=== PATIENT | male | born 1970 | race Hispanic/Latino ===

== ENCOUNTER 2020-04-25 19:31 | Emergency (ER) | payer BC ==
--- OUTSIDE RECORDS SUMMARY | 2020-04-25 19:33 | XMS REPORT | Continuity of Care Document ---
:1970 Author Organization [facility] t Address [address] [place] [address] Care Team Providers Name Role Phone Jael DE SANTIAGO, Howard Attending Clinician Problems This patient has no known problems. Allergies, Adverse Reactions, Alerts This patient has no known allergies or adverse reactions. Medications This patient has no known medications. Procedures This patient has no known procedures. Encounters Start End Encounter Admission Attending Care Care Encounter Source Date/Time Date/Time Type Type Clinicians Facility Department ID 2019-10-29 2019-10-29 [facility] [id number] 00:00:00 00:00:00 [facility] [id number] [facility] [id number] Professio [phone] nal 044 Office Building One 2019-10-28 2019-10-28 Office [facility] [id number] 08:24:46 09:08:51 Visit [facility] [id number] [facility] [id number] Professio [phone] nal 044 Office Building One Results This patient has no known results.
[2020-04-25] MEDS ORDERED: LIDOCAINE 1% MPF 5 ML VIAL ONE (20:27)
[2020-04-25] MEDS ORDERED: TETANUS & DIPHTHERIA TOX,ADULT 0.5 ML VIAL ONE (20:28)
--- NOTE | 2020-04-25 21:05 | EDPHYS ---
Physician Documentation [facility] Name: Nilay Frost Age: 49 yrs Sex: Male : 1970 Arrival Date: 04/25/2020 Time: 19:32 Bed 15 Private MD: ED Physician Juan Arguello HPI: 04/25 20:17 This 49 yrs old Male presents to ER via Ambulatory with complaints of jmm Laceration - to Thumb. 20:17 The patient or guardian reports injury, a laceration. Onset: The symptoms/episode jmm began/occurred acutely, just prior to arrival. Modifying factors: The symptoms are alleviated by nothing, the symptoms are aggravated by nothing. Associated signs and symptoms: Pertinent negatives: fever, numbness distally, tingling distally. This is a 49 year old male with a history of htn that presents to the ED with complaints of laceration to his left thumb. Patient using a drill press which rotated an object and cut his thumb. Unsure on tetanus immunization. . Historical: - Allergies: 19:38 No Known Allergies; jd3 - Home Meds: 19:38 visoprolol [Active]; hydrochlorothiazide 37.5 mg Oral tab 1 tab once daily [Active]; jd3 gout med [Active]; - PMHx: 19:38 Diverticulitis; Hypertension; Gout; jd3 - PSHx: 19:38 None; jd3 - Immunization history:: Adult Immunizations up to date, Last tetanus immunization: unknown. - Social history:: Smoking status: Patient denies any tobacco usage or history of. ROS: 20:17 Constitutional: Negative for fever, chills, and weight loss, Cardiovascular: Negative jmm for chest pain, palpitations, and edema, Respiratory: Negative for shortness of breath, cough, wheezing, and pleuritic chest pain. 20:17 Skin: Positive for laceration(s). 20:17 All other systems are negative. Exam: 20:17 Constitutional: This is a well developed, well nourished patient who is awake, alert, jmm and in no acute distress. Head/Face: atraumatic. Eyes: EOMI, no conjunctival erythema appreciated ENT: Moist Mucus Membranes Neck: Trachea midline, Supple Chest/axilla: Normal chest wall appearance and motion. Cardiovascular: Regular rate and rhythm. No edema appreciated Respiratory: Normal respirations, no respiratory distress appreciated Abdomen/GI: Non distended, soft Back: Normal ROM 20:17 Musculoskeletal/extremity: FROM appreciated ot the left thumb, from against resistance, < 2 sec dist cap refill, NVI. 20:17 Skin: 3 cm laceration noted to the left thumb. 20:17 Neuro: Orientation: is normal, Mentation: is normal, Memory: is normal. 20:17 Psych: Behavior/mood is pleasant, cooperative. Vital Signs: 19:38 BP 124 / 81; Pulse 65; Resp 17 S; Temp 97.4(TE); Pulse Ox 98% on R/A; Weight 108.86 kg jd3 (R); Height 6 ft. 1 in. (185.42 cm) (R); Pain 1/10; 20:28 Pulse Ox 100% ; Pain 0/10; ks7 21:16 Pulse Ox 100% ; Pain 0/10; ks7 21:21 Pulse Ox 100% ; Pain 0/10; ks7 21:30 BP 126 / 79; Pulse 70; Resp 18; Temp 98.1(TE); Pulse Ox 99% on R/A; Pain 0/10; ks7 19:38 Body Mass Index 31.66 (108.86 kg, 185.42 cm) jd3 Laceration: 21:03 Wound Repair of 3cm ( 1.2in ) subcutaneous laceration to dorsal aspect of proximal jmm phalanx of left thumb. Distal neuro/vascular/tendon intact. Anesthesia: Local anesthetic administered with 5 mls of 1% lidocaine. Wound prep: Moderate cleansing with betadine by ak. Skin closed with 4 5-0 Prolene using simple sutures and sterile technique. Patient tolerated well. MDM: 20:02 Patient medically screened. [facility] 21:02 Data reviewed: vital signs, nurses notes, lab test result(s), radiologic studies, plain [facility] films. Counseling: I had a detailed discussion with the patient and/or guardian regarding: the historical points, exam findings, and any diagnostic results supporting the discharge/admit diagnosis, the need for outpatient follow up, to return to the emergency department if symptoms worsen or persist or if there are any questions or concerns that arise at home. ED course: Patient given wound infection return precautions. Patient understood and agrees with the plan of care. . 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 Exp: ks7 11/19/2021. Lot #: [id number]. } Route: IM; Site: left deltoid; 20:28 Follow up: Pulse Ox 100% ; Pain 0/10 Adult ks7 21:16 Follow up: Pulse Ox 100% ; Pain 0/10 Adult ks7 20:50 Drug: Lidocaine (1 %) 5 mg {Note: administered by Mohan MINOR prior to lac repair.} Route: ks7 Infiltration; 21:21 Follow up: Pulse Ox 100% ; Pain 0/10 Adult ks7 Disposition: 23:02 Co-signature as Attending Physician, Juan Arguello MD. van Disposition: 04/25/20 21:04 Discharged to Home. Impression: Laceration of the Thumb. - Condition is Stable. - Discharge Instructions: Laceration Care, Adult. - Medication Reconciliation Form, Thank You Letter, Antibiotic Education, Prescription Opioid Use form. - Follow up: Private Physician; When: 2 - 3 days; Reason: Recheck today's complaints, Continuance of care, Re-evaluation by your physician. Signatures: Dispatcher [employer] EDSC Juan Arguello MD MD pkl Mickail, Joel, PA PA jmm Davies, Jonathon RN RN jJodi Hurley RN RN ks7 Corrections: (The following items were deleted from the chart) 20:14 20:05 Hand Left 3 View+RAD.RAD.BRZ ordered. [facility] 21:32 21:04 04/25/2020 21:04 Discharged to Home. Impression: Laceration of the Thumb. ks7 Condition is Stable. Forms are Medication Reconciliation Form, Thank You Letter, Antibiotic Education, Prescription Opioid Use. Follow up: Private Physician; When: 2 - 3 days; Reason: Recheck today's complaints, Continuance of care, Re-evaluation by your physician. [facility]
--- NOTE | 2020-04-25 21:05 | ER ---
Nurse's Notes [facility] Name: Nilay Frost Age: 49 yrs Sex: Male : 1970 Arrival Date: 04/25/2020 Time: 19:32 Bed 15 Private MD: Diagnosis: Laceration of the Thumb Presentation: 04/25 19:35 Chief complaint: Patient states: "I was doing some work with a cable, and when I went j to drill next to it it spun around and caught me in the left thumb.". Coronavirus screen: Proceed with normal triage. Ebola Screen: Patient negative for fever greater than or equal to 101.5 degrees Fahrenheit, and additional compatible Ebola Virus Disease symptoms. Complicating Factors: There are no complicating factors for this patient. Initial Sepsis Screen: Does the patient meet any 2 criteria? No. Patient's initial sepsis screen is negative. Does the patient have a suspected source of infection? No. Patient's initial sepsis screen is negative. Risk Assessment: Do you want to hurt yourself or someone else? Patient reports no desire to harm self or others. Onset of symptoms was April 25, 2020. 19:35 Method Of Arrival: Ambulatory j 19:35 Acuity: JOEY 3 jd3 Triage Assessment: 21:32 General: Appears in no apparent distress. Behavior is calm, cooperative. Injury ks7 Description: Laceration. Historical: - Allergies: 19:38 No Known Allergies; jd3 - Home Meds: 19:38 visoprolol [Active]; hydrochlorothiazide 37.5 mg Oral tab 1 tab once daily [Active]; jd3 gout med [Active]; - PMHx: 19:38 Diverticulitis; Hypertension; Gout; jd3 - PSHx: 19:38 None; jd3 - Immunization history:: Adult Immunizations up to date, Last tetanus immunization: unknown. - Social history:: Smoking status: Patient denies any tobacco usage or history of. Screenin:19 Abuse screen: Denies threats or abuse. Denies injuries from another. Nutritional ks7 screening: No deficits noted. Tuberculosis screening: No symptoms or risk factors identified. Fall Risk None identified. Assessment: 21:17 Pain: Denies pain. Musculoskeletal: laceration to L thumb. normal ROM to thumb/hand. ks7 denies pain. Injury Description: Laceration is clean, 2.6 to 7.5 cm long, not bleeding, linear. 21:19 Reassessment: Patient is alert, oriented x 3, equal unlabored respirations, skin ks7 warm/dry/pink. Vital Signs: 19:38 BP 124 / 81; Pulse 65; Resp 17 S; Temp 97.4(TE); Pulse Ox 98% on R/A; Weight 108.86 kg jd3 (R); Height 6 ft. 1 in. (185.42 cm) (R); Pain 1/10; 20:28 Pulse Ox 100% ; Pain 0/10; ks7 21:16 Pulse Ox 100% ; Pain 0/10; ks7 21:21 Pulse Ox 100% ; Pain 0/10; ks7 21:30 BP 126 / 79; Pulse 70; Resp 18; Temp 98.1(TE); Pulse Ox 99% on R/A; Pain 0/10; ks7 19:38 Body Mass Index 31.66 (108.86 kg, 185.42 cm) [facility] ED Course: 19:32 Patient arrived in ED. ds1 19:37 Triage completed. jd3 19:40 Arm band placed on. j 19:42 Jodi Cadet, ENID is Primary Nurse. ks7 19:42 Mohan Rincon PA is PHCP. [facility] 19:42 Juan Arguello MD is Attending Physician. [facility] 21:19 Resting quietly. ks7 21:19 Patient has correct armband on for positive identification. Bed in low position. Call ks7 light in reach. Side rails up X2. 21:19 No provider procedures requiring assistance completed. Patient did not have IV access ks7 during this emergency room visit. 21:30 Bandage applied. 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 Exp: ks7 11/19/2021. Lot #: [id number]. } Route: IM; Site: left deltoid; 20:28 Follow up: Pulse Ox 100% ; Pain 0/10 Adult ks7 21:16 Follow up: Pulse Ox 100% ; Pain 0/10 Adult ks7 20:50 Drug: Lidocaine (1 %) 5 mg {Note: administered by Mohan MINOR prior to lac repair.} Route: ks7 Infiltration; 21:21 Follow up: Pulse Ox 100% ; Pain 0/10 Adult ks7 Outcome: 21:04 Discharge ordered by . delphine 21:31 Discharged to home ambulatory. ks7 21:31 Condition: good 21:31 Discharge instructions given to patient, Instructed on discharge instructions, wound care, Demonstrated understanding of instructions, follow-up care, wound care. 21:32 Patient left the ED. ks7 Signatures: Mohan Rincno PA PA jmm Sanford, Demi ds1 Efren Cai RN RN jJodi Hurley RN RN ks7 Corrections: (The following items were deleted from the chart) 19:41 19:35 Acuity: JOEY 4 jd3 jd3 19:41 19:38 Pulse 65bpm; Resp 17bpm; Spontaneous; Pulse Ox 98% RA; Temp 97.4F Temporal; jd3 108.86 kg Reported; Height 6 ft. 1 in. Reported; BMI: 31.6; Pain 1/10; jd3
[2020-04-26 12:19] VITALS: BP 126/79; TEMP 98.1; O2SAT 99
== END 2020-04-25 21:32 | disposition home or self-care (01) ==
LOC: ER 19:31
PROC: 0JQK0ZZ Repair Left Hand Subcutaneous Tissue and Fascia, Open Approach (ICD-10-PCS; principal; 2020-04-25)
DX: S61.012A Laceration without foreign body of left thumb without damage to nail, initial encounter (principal); W31.89XA Contact with other specified machinery, initial encounter; Y93.9 Activity, unspecified; Y92.9 Unspecified place or not applicable; I10 Essential (primary) hypertension; Z23 Encounter for immunization
CPT/HCPCS: 90471; 90714; 99283

== ENCOUNTER 2020-04-26 10:25 | Emergency (ER) | payer BC ==
[2020-04-26] MEDS ORDERED: DERMABOND SKIN ADHESIVE TOP ONE (11:28)
--- NOTE | 2020-04-26 11:41 | ER ---
Nurse's Notes [facility] Name: Nilay Frost Age: 49 yrs Sex: Male : 1970 Arrival Date: 04/26/2020 Time: 10:32 Bed 12 Private MD: Diagnosis: Laceration without foreign body of left thumb without damage to nail Presentation: 04/26 11:14 Chief complaint: Patient states: "I woke up today and 2 of my sutures came out and aa5 another one just came out just sitting in the lobby". 1 suture noted to left thumb. 11:14 Coronavirus screen: Patient denies a cough. Patient denies shortness of breath or aa5 difficulty breathing. Patient denies measured and/or subjective temperature greater than 100.4F prior to today's visit. Patient denies travel on a cruise ship or to a country the [facility] currently lists as an affected area. Patient denies contact with known and/or suspected case of COVID-19. Proceed with normal triage. Ebola Screen: Patient negative for fever greater than or equal to 101.5 degrees Fahrenheit, and additional compatible Ebola Virus Disease symptoms. Initial Sepsis Screen: Does the patient meet any 2 criteria? No. Patient's initial sepsis screen is negative. Does the patient have a suspected source of infection? No. Patient's initial sepsis screen is negative. Risk Assessment: Do you want to hurt yourself or someone else? Patient reports no desire to harm self or others. 11:14 Method Of Arrival: Ambulatory aa5 11:14 Acuity: JOEY 4 aa5 11:14 Onset of symptoms was April 26, 2020. aa5 Historical: - Allergies: 11:14 No Known Allergies; aa5 - PMHx: 11:14 Diverticulitis; Gout; Hypertension; aa5 - Immunization history:: Adult Immunizations unknown. - Social history:: Smoking status: Patient denies any tobacco usage or history of. Screenin:20 Abuse screen: Denies threats or abuse. Nutritional screening: No deficits noted. aa5 Tuberculosis screening: No symptoms or risk factors identified. Fall Risk None identified. Assessment: 11:15 General: Appears comfortable, Behavior is calm, cooperative. Pain: Denies pain. Neuro: aa5 Level of Consciousness is awake, alert, obeys commands, Oriented to person, place, time, situation. Cardiovascular: Capillary refill < 3 seconds is brisk in bilateral fingers. Respiratory: Airway is patent Respiratory effort is even, unlabored, Respiratory pattern is regular, symmetrical. GI: No signs and/or symptoms were reported involving the gastrointestinal system. : No signs and/or symptoms were reported regarding the genitourinary system. EENT: No signs and/or symptoms were reported regarding the EENT system. Derm: Skin is pink, warm \\T\\ dry. Laceration noted to left thumb with [address], no active bleeding noted. Musculoskeletal: Range of motion: intact in all extremities. 11:30 Reassessment: Dermabond and steri-strips applied to left thumb by PAPERHANGER SUPERVISOR. . aa5 12:07 Reassessment: Pre-formed finger splint applied to left thumb. aa5 12:08 Reassessment: Patient is alert, oriented x 3, equal unlabored respirations, skin aa5 warm/dry/pink. Vital Signs: 11:16 BP 119 / 85; Pulse 54; Resp 16 S; Temp 98.0(TE); Pulse Ox 96% on R/A; Weight 108.86 kg aa5 (R); Height 6 ft. 1 in. (185.42 cm) (R); 11:16 Body Mass Index 31.66 (108.86 kg, 185.42 cm) aa5 ED Course: 10:32 Patient arrived in ED. fj1 10:51 Denise Guthrie FNP-C is [facility]. kb 10:51 Elgin Mendoza MD is Attending Physician. kb 11:16 Cassia Kim, RN is Primary Nurse. aa5 11:16 Arm band placed on Patient placed in an exam room, on a stretcher. aa5 11:16 Patient has correct armband on for positive identification. aa5 12:08 No provider procedures requiring assistance completed. Patient did not have IV access aa5 during this emergency room visit. 18:03 Triage completed. aa5 Administered Medications: No medications were administered Outcome: 11:40 Discharge ordered by . kb 12:08 Discharged to home ambulatory. aa5 12:08 Condition: stable 12:08 Discharge instructions given to patient, Instructed on discharge instructions, follow up and referral plans. Demonstrated understanding of instructions, follow-up care. 12:12 Patient left the ED. aa5 Signatures: Denise Guthrie FNP-C FNP-Cassia Watts, RN RN aa5 Hiren Childers fj1 Corrections: (The following items were deleted from the chart) 18:03 11:14 Chief complaint: Patient states: "I woke up today and 2 of my sutures came out aa5 and another one just came out just sitting in the lobby". 1 suture noted to thumb. aa5
--- NOTE | 2020-04-26 11:41 | EDPHYS ---
Physician Documentation [facility] Name: Nilay Frost Age: 49 yrs Sex: Male : 1970 Arrival Date: 04/26/2020 Time: 10:32 Bed 12 Private MD: ED Physician Elgin Mendoza HPI: 04/26 11:26 This 49 yrs old Male presents to ER via Unassigned with complaints of Suture kb Recheck. 11:26 Patient presents to ED for recheck of: laceration. The affected area is on the dorsal kb aspect of proximal phalanx of left thumb. Previous treatment: The patient was initially treated yesterday, the care was rendered at [facility], Treatment type: The patient's original treatment included sutures. Progress: The patient reports dehiscence. The patient has not experienced similar symptoms in the past. The patient has been recently seen at the [facility] Emergency Department, yesterday, for similar complaints. Pt reports he had sutures placed yesterday. States he woke up and 2 of them had come out, a third one came out while he was sitting in the lobby. has one suture in place at this time. Historical: - Allergies: 11:14 No Known Allergies; aa5 - PMHx: 11:14 Diverticulitis; Gout; Hypertension; aa5 - Immunization history:: Adult Immunizations unknown. - Social history:: Smoking status: Patient denies any tobacco usage or history of. ROS: 11:17 Constitutional: Negative for fever, chills, and weight loss, Cardiovascular: Negative kb for chest pain, palpitations, and edema, Respiratory: Negative for shortness of breath, cough, wheezing, and pleuritic chest pain, Abdomen/GI: Negative for abdominal pain, nausea, vomiting, diarrhea, and constipation, Back: Negative for injury and pain, MS/Extremity: Negative for injury and deformity, Neuro: Negative for headache, weakness, numbness, tingling, and seizure. 11:17 Skin: Positive for laceration(s), of the dorsal aspect of proximal phalanx of left thumb. Exam: 11:17 Constitutional: This is a well developed, well nourished patient who is awake, alert, kb and in no acute distress. Head/Face: Normocephalic, atraumatic. Chest/axilla: Normal chest wall appearance and motion. Nontender with no deformity. No lesions are appreciated. Cardiovascular: Regular rate and rhythm with a normal S1 and S2. No gallops, murmurs, or rubs. Normal PMI, no JVD. No pulse deficits. Respiratory: Lungs have equal breath sounds bilaterally, clear to auscultation and percussion. No rales, rhonchi or wheezes noted. No increased work of breathing, no retractions or nasal flaring. Abdomen/GI: Soft, non-tender, with normal bowel sounds. No distension or tympany. No guarding or rebound. No evidence of tenderness throughout. MS/ Extremity: Pulses equal, no cyanosis. Neurovascular intact. Full, normal range of motion. Neuro: Awake and alert, GCS 15, oriented to person, place, time, and situation. Cranial nerves II-XII grossly intact. Motor strength 5/5 in all extremities. Sensory grossly intact. Cerebellar exam normal. Normal gait. 11:17 Skin: Wound recheck: Suture laceration closure: marked dehiscence. Vital Signs: 11:16 BP 119 / 85; Pulse 54; Resp 16 S; Temp 98.0(TE); Pulse Ox 96% on R/A; Weight 108.86 kg aa5 (R); Height 6 ft. 1 in. (185.42 cm) (R); 11:16 Body Mass Index 31.66 (108.86 kg, 185.42 cm) aa5 Laceration: 11:34 Wound Repair of 2.5cm ( 1.0in ) subcutaneous laceration to dorsal aspect of proximal kb phalanx of left thumb. Linear shaped.. Distal neuro/vascular/tendon intact. Skin closed with thin layer Adhesive skin closure using Dermabond. Dressed with steri-strips. Patient tolerated well. MDM: 11:16 Patient medically screened. kb 11:17 Data reviewed: vital signs, nurses notes. Data interpreted: Pulse oximetry: on room air kb is 96 %. Interpretation: normal. 11:17 Counseling: I had a detailed discussion with the patient and/or guardian regarding: the kb historical points, exam findings, and any diagnostic results supporting the discharge/admit diagnosis, the need for outpatient follow up, a family practitioner, to return to the emergency department if symptoms worsen or persist or if there are any questions or concerns that arise at home. 07/22 11:17 Order name: Dermabond; Complete Time: 11:19 kb 04/26 11:35 Order name: Finger Splint; Complete Time: 11:50 kb Administered Medications: No medications were administered Disposition: 17:35 Co-signature as Attending Physician, Elgin Mendoza MD. rn Disposition: 04/26/20 11:40 Discharged to Home. Impression: Laceration without foreign body of left thumb without damage to nail. - Condition is Stable. - Discharge Instructions: Laceration Care, Adult, [id number]. - Medication Reconciliation Form, Thank You Letter, Antibiotic Education, Prescription Opioid Use form. - Follow up: Emergency Department; When: As needed; Reason: Worsening of condition. Follow up: Private Physician; When: 2 - 3 days; Reason: Recheck today's complaints, Continuance of care, Re-evaluation by your physician. Signatures: Denise Guthrie, LAND MANAGER-C LAND MANAGER-Ckb Elgin Mendoza MD MD rn Calderon, Audri, RN RN aa5 Corrections: (The following items were deleted from the chart) 12:12 11:40 04/26/2020 11:40 Discharged to Home. Impression: Laceration without foreign body aa5 of left thumb without damage to nail. Condition is Stable. Forms are Medication Reconciliation Form, Thank You Letter, Antibiotic Education, Prescription Opioid Use. Follow up: Emergency Department; When: As needed; Reason: Worsening of condition. Follow up: Private Physician; When: 2 - 3 days; Reason: Recheck today's complaints, Continuance of care, Re-evaluation by your physician. kb
--- OUTSIDE RECORDS SUMMARY | 2020-04-26 11:49 | XMS REPORT | Continuity of Care Document ---
:1970 Author Organization [facility] t Address [address] [place] [address] Care Team Providers Name Role Phone Howard Elder MD Attending Clinician Problems This patient has no known problems. Allergies, Adverse Reactions, Alerts This patient has no known allergies or adverse reactions. Medications This patient has no known medications. Procedures This patient has no known procedures. Encounters Start End Encounter Admission Attending Care Care Encounter Source Date/Time Date/Time Type Type Clinicians Facility Department ID 2019-10-29 2019-10-29 Telephone Jael [facility] [id number] 00:00:00 00:00:00 [facility] [id number] [facility] [id number] Professio [phone] nal 044 Office Building One 2019-10-28 2019-10-28 Office [facility] [id number] 08:24:46 09:08:51 Visit [facility] [id number] [facility] [id number] Professio [phone] nal 044 Office Building One Results This patient has no known results.
[2020-04-26 20:29] VITALS: BP 119/85; TEMP 98; O2SAT 96
== END 2020-04-26 12:12 | disposition home or self-care (01) ==
LOC: ER 10:25
PROC: 0JQK0ZZ Repair Left Hand Subcutaneous Tissue and Fascia, Open Approach (ICD-10-PCS; principal; 2020-04-26)
DX: T81.30XA Disruption of wound, unspecified, initial encounter (principal)
CPT/HCPCS: 99281

== ENCOUNTER 2020-10-21 17:08 | Emergency (ER) | payer SELFPAY ==
--- OUTSIDE RECORDS SUMMARY | 2020-10-21 17:10 | XMS REPORT | Continuity of Care Document ---
:1970 Author Organization [facility] t Address [address] [place] [address] Care Team Providers Name Role Phone Howard Elder MD Attending Clinician 2, Lab Attending Clinician Unavailable Problems This patient has no known problems. Allergies, Adverse Reactions, Alerts This patient has no known allergies or adverse reactions. Medications This patient has no known medications. Procedures This patient has no known procedures. Encounters Start End Encounter Admission Attending Care Care Encounter Source Date/Time Date/Time Type Type Clinicians Facility Department ID 2020-10-16 2020-10-16 Telephone [facility] [id number] 00:00:00 00:00:00 [facility] [id number] [facility] [id number] Professio [phone] nal 044 Office Building One 2020-05-16 2020-05-16 [facility] 2, Adc Lab [facility] [id number] 09:33:49 09:48:49 Visit [place] [id number] [place] [id number] Professio [phone] [facility] 353 Building 2020-05-16 2020-05-16 Office [facility] [id number] 09:02:39 09:17:39 Visit [place] [id number] [place] [id number] Professio [phone] [place] [address] Building Results This patient has no known results.
--- OUTSIDE RECORDS SUMMARY | 2020-10-21 17:10 | XMS REPORT | Summary of Care ---
:1970 Author Organization [facility] - [facility] Address [address] [place] [id number] Care Team Providers Name Role Phone Howard Elder MD Primary Care Provider Reason for Visit Reason Comments Rx Concern/Question Encounter Details Date Type Department Care Team Description 10/16/2020 Telephone [facility] Alvarado Elder Rx Conc gurjit/Question Medicine - Morning Viewmitali Lawrence MD [address] [place] [address] Dr [address] [place] [address] [place] [address] [place], [place] [phone] Allergies No Known Allergiesdocumented as of this encounter (statuses as of 10/16/2020) Medications Medication Sig Dispensed Refills Start Date End Date Status colchicine 0.6 mg Take 0.6 mg by 30 capsule 5 10/28/2019 Active CapIndications: Acute mouth as needed idiopathic gout of (flare up gout). right foot triamterene-hydrochloro Take 1 tablet by 30 tablet 11 0 Active thiazid 37.5-25 mg mouth daily. tabletIndications: Essential hypertension ibuprofen 800 mg Take 1 tablet by 90 tablet 05/16/2020 Active tabletIndications: mouth every 8 Right foot pain (eight) hours as needed (pain). febuxostat (ULORIC) 40 Take 1 tablet by 30 tablet 05/16/2020 Active mg tabletIndications: mouth daily. Acute idiopathic gout of right foot bisoprolol 5 mg Take 1 tablet by 30 tablet 05/16/2020 Active tabletIndications: mouth daily. Essential hypertension documented as of this encounter (statuses as of 10/16/2020) Active Problems Problem Noted Date Essential hypertension 09/20/2015 Gastroesophageal reflux disease without esophagitis Sleep apnea, obstructive 09/20/2015 documented as of this encounter (statuses as of 10/16/2020) Social History Tobacco Use Types Packs/Day Years Used Date Never Smoker Smokeless Tobacco: Never Used Alcohol Use Drinks/Week oz/Week Comments No 0 Standard drinks or equivalent 0.0 Sex Assigned at Date Recorded Not on file documented as of this encounter Last Filed Vital Signs Not on filedocumented in this encounter Miscellaneous Notes Telephone Encounter - Zora Lopez MA - 10/16/2020 2:59 PM TESTING TECH Recommendations given to patient elephone Encounter - Kerry Lenz - 10/16/2020 2:19 PM CSTPatient calling back regarding this message,please call [phone] elephone Encounter - Alvarado Elder MD - 10/16/2020 12:44 PM CSTHe should take vitamin c, vitamin d, zinc and a coated baby aspirin Use Robitussin DM or Mucinex DM. Drink plenty of fluids and get plenty of rest. Advil Cold/Sinus as needed for fever and/or congestion. Wash hands frequently. ING TECH Telephone Encounter - Linda Sidhu MA - 10/16/2020 10:11 AM CST10/16/20 10:11 AM Routing to correct clinic Linda Sidhu MA 10/16/2020 10:11 AM elephone Encounter - Jesica Schilling - 10/16/2020 10:04 AM CSTPatient tested positive for Covid at [facility] pharmacy and so did his . His 's primary care doctor prescribed her some medication. Patient wants to know if he could get prescribed some medication as well. He has lost sense of smell,sore throat, off and on fever, and loss of appetite. Please call and advise thanks. documented in this encounter Plan of Treatment Health Maintenance Due Date Last Done Comments DTaP,Tdap,and Td Vaccines (1 - 1989 Tdap) INFLUENZA VACCINE (#1) 2020 Depression Screening 10/28/2020 10/28/2019 COLONOSCOPY 07/30/2027 07/30/2017 Colorectal Cancer Screening 07/30/2027 PNEUMOCOCCAL 0-64 YEARS COMBINED Aged Out No longer eligible based on SERIES patient's age to complete this topic documented as of this encounter Results Not on filedocumented in this encounter Insurance Payer Benefit Plan Subscriber ID Effective Dates Phone Address Type / Group [facility] OF [facility] [id number] 2018-Brett [phone] [address] [place] [id number] [place] [address] documented as of this encounter
--- NOTE | 2020-10-21 20:09 | ER ---
Nurse's Notes [facility] Name: Nilay Frost Age: 49 yrs Sex: Male : 1970 Arrival Date: 10/21/2020 Time: 17:09 Bed Waiting Private MD: Diagnosis: Presentation: 10/21 17:15 Chief complaint: Patient states: Fever, sweats, increased BP and HR since Friday. ll1 Diagnosed with covid on Friday, couldn't smell well. Lightheaded at times. BP at home yesterday 166/106, HR 80. Coronavirus screen: Client denies travel out of the [place] in the last 14 days. congestion, cough unrelated to allergies, diarrhea, fatigue, fever, headache, shaking with chills, loss of taste or smell, Client presents with at least one sign or symptom that may indicate coronavirus-19. Standard/surgical mask placed on the client. Client reports previous positive COVID test result. Ebola Screen: Patient denies travel to an Ebola-affected area in the 21 days before illness onset. Initial Sepsis Screen: Does the patient meet any 2 criteria? No. Patient's initial sepsis screen is negative. Does the patient have a suspected source of infection? Yes: Productive cough/pneumonia. Risk Assessment: Do you want to hurt yourself or someone else? Patient reports no desire to harm self or others. Onset of symptoms was October 16, 2020. 17:15 Method Of Arrival: Ambulatory [facility] 17:15 Acuity: JOEY 3 ll1 Historical: - Allergies: 17:17 No Known Allergies; ll1 - PMHx: 17:17 Diverticulitis; Gout; Hypertension; ll1 - PSHx: 17:17 None; ll1 - Immunization history:: Flu vaccine is not up to date. - Social history:: Smoking status: Patient denies any tobacco usage or history of. Vital Signs: 17:15 BP 133 / 85; Pulse 81; Resp 17; Temp 98.2; Pulse Ox 97% on R/A; Weight 113.4 kg; Height ll1 6 ft. 1 in. (185.42 cm); Pain 0/10; 17:15 Body Mass Index 32.98 (113.40 kg, 185.42 cm) [facility] ED Course: 17:09 Patient arrived in ED. rg4 17:17 Triage completed. ll1 17:18 Arm band placed on. ll1 17:18 Patient has correct armband on for positive identification. ll1 Administered Medications: No medications were administered Outcome: 20:08 Patient left the ED. ll1 Signatures: Rachel Kang rg4 Bryan Figueredo, RN RN ll1 Corrections: (The following items were deleted from the chart) 17:18 17:15 Chief complaint: Patient states: Fever, sweats, increased BP and HR since Friday. ll1 Diagnosed with covid on Friday, couldn't smell well. Lightheaded at times. ll1
[2020-10-21 20:17] VITALS: BP 133/85; TEMP 98.2; O2SAT 97
== END 2020-10-21 20:08 | disposition left against medical advice (07) ==
LOC: ER 17:08
DX: Z53.21 Procedure and treatment not carried out due to patient leaving prior to being seen by health care provider (principal)
CPT/HCPCS: 99281

== ENCOUNTER 2024-06-02 07:26 | Emergency (ER) | payer OTHER ==
--- OUTSIDE RECORDS SUMMARY | 2024-06-02 07:30 | XMS REPORT | Continuity of Care Document ---
Author Name Unknown Address [address] [facility] [address] [place] [address] [facility] thconnect Address [address] [facility] 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 Role Phone Farheen Rosales NP Primary Care Physician + [phone] Farheen Rosales NP Attending Clinician [phone] FARHEEN ROSALES Attending Clinician UnavailOfelia Barnhart MD Attending Clinician [phone], [facility] Attending Clinician Unavailable OFELIA GOMEZ Attending Clinician Unavailab PAIGE Beckman Attending Clinician Unavailable Paige Cook MD Attending Clinician [phone] Doctor Unassigned, [place] Attending Clinician U Carlos Cobb MD Attending Clinician + [phone] CARLOS HALL Attending Clinician Laureen Koroma Attending Clinician [phone] Unknown, Attending Attending Clinician Unavailab LAUREEN Hatfield Attending Clinician Unavailable Lab, Ang - Db Attending Clinician Unavailable SALAS SANCHEZ Attending Clinician Unavailable Payers Payer Name Policy Type Policy Number Effective Date Expirati on Date Source [id number] PPO AND OUT OF STATE [id number] 2019 00:00:00 Problems Condition Name Condition Details Condition Category Status Onset Date Resolution Date Last Treatment Date Treating Clinician Comments Source Essential hypertensi on Essential hypertensi on Disease Active 2014-10 00:00: 00 [facility] Gastroesop hageal reflux disease without esophagiti s Gastroesop hageal reflux disease without esophagiti s Disease Active 2014-10 00:00: 00 [facility] Sleep apnea, obstructiv e Sleep apnea, obstructiv e Disease Active 2014-10 00:00: 00 [facility] Allergies, Adverse Reactions, Alerts Allergy Name Allergy Type Status Severity Reaction(s) Onset Date Inactive Date Treating Clinician Comments Source NO KNOWN ALLERGIE S Drug Class Active [facility] Social History Social Habit Start Date Stop Date Quantity Comments Source Gender identity [facility] Sexual orientation U [facility] Alcoholic beverage intake 2023-10-16 00:00:00 2023-10-16 00:00:00 0 /d [facility] Alcohol intake 2023-10-16 00:00:00 2023-10-16 00:00:00 0 /d [facility] Exposure to SARS-CoV-2 (event) 2022-08-05 00:00:00 2022-08-15 12:48:00 Not sure [facility] Tobacco use and exposure 2022-08-15 00:00:00 2022-08-15 00:00:00 Smokeless tobacco non-user [facility] History of Social function 2022-06-19 00:00:00 2022-06-19 00:00:00 [facility] Sex assigned at 1970 00:00:00 1970 00:00:00 [facility] Smoking Status Start Date Stop Date Source Never smoked tobacco [facility] Medications Ordered Medication Name Filled Medication Name Start Date Stop Date Current Medication? Ordering Clinician Indication Dosage Frequency Signature (SIG) Comments Components Source liraglutide 0.6 mg/0.1 mL (18 mg/3 mL) injection -20 00:00: 00 Yes [id number] 1.8mg inject 1.8 mg under the skin in the morning. [facility] febuxostat 40 mg tablet 4-29 00:00: 00 Yes [id number] 40mg Take 1 tablet by mouth in the morning. [facility] Insulin [place], Disposable, (NOVOFINE 32) 32 gauge x 1/4" Ndle 10-22 00:00: 00 Yes [id number] 1{needl e} inject 1 Needle under the skin in the morning. Use as directed [facility] liraglutide (VICTOZA 3-FRANKLYN) 0.6 mg/0.1 mL (18 mg/3 mL) injection 10-22 00:00: 00 02-22 00:00 :00 No [id number] .6mg inject 0.6 mg under the skin in the morning. 1st dose [facility] Insulin [place], Disposable, (NOVOFINE 32) 32 gauge x 1/4" Ndle 1-13 00:00: 00 10-22 00:00 :00 No [id number] 1{needl e} inject 1 Needle under the skin in the morning. Use as directed [facility] Insulin [place], Disposable, (NOVOFINE 32) 32 gauge x 1/4" Ndle 10-16 00:00: 00 Yes [id number] Use as directed [facility] liraglutide (VICTOZA 3-FRANKLYN) 0.6 mg/0.1 mL (18 mg/3 mL) injection 10-16 00:00: 00 02-22 00:00 :00 No [id number] 1.2mg inject 1.2 mg under the skin in the morning. 2nd dose [facility] liraglutide 0.6 mg/0.1 mL (18 mg/3 mL) injection 10-16 00:00: 00 02-22 00:00 :00 No [id number] 1.8mg inject 1.8 mg under the skin in the morning. Start 0.6mg SC qDay x 1 week; then increase by 0.6mg/Day qWK to target 3mg SC qDay: Max 3mg/Day. [facility] liraglutide (VICTOZA 3-FRANKLYN) 0.6 mg/0.1 mL (18 mg/3 mL) injection - 00:00: 00 10-22 00:00 :00 No [id number] .6mg inject 0.6 mg under the skin in the morning for 30 days. 1st dose [facility] tamsulosin 0.4 mg 24 hr capsule 2022-10 2-05 00:00: 00 Yes [id number] .4mg Take 1 capsule by mouth in the morning. [facility] semaglutide , weight loss, (WEGOVY) 1 mg/0.5 mL PnIj SC injection 2022-10 0- 00:00: 00 10-31 05:59 :00 No [id number] 1mg inject 1 mg under the skin weekly for 90 days. 3rd dose [facility] VICTOZA 3-FRANKLYN 0.6 mg/0.1 mL (18 mg/3 mL) injection 2022-10 00:00: 00 10-01 05:59 :00 No [id number] .6mg inject 0.6 mg under the skin in the morning for 60 days. 1st dose [facility] VICTOZA 3-FRANKLYN 0.6 mg/0.1 mL (18 mg/3 mL) injection 2022-10 0- 00:00: 00 09-09 00:00 :00 No [id number] 1.2mg inject 1.2 mg under the skin in the morning for 90 days. 2nd dose [facility] semaglutide , weight loss, (WEGOVY) 0.25 mg/0.5 mL PnIj SC injection 2022-10 0-27 00:00: 00 09-01 05:59 :00 No [id number] .25mg inject 0.25 mg under the skin weekly for 30 days. 1st dose [facility] semaglutide , weight loss, (WEGOVY) 0.5 mg/0.5 mL PnIj SC injection 2022-10 0-27 00:00: 00 09-01 05:59 :00 No [id number] .5mg inject 0.5 mg under the skin weekly for 30 days. 2nd dose [facility] liraglutide , weight loss, 3 mg/0.5 mL (18 mg/3 mL) PnIj 2022-10 00:00: 00 Yes [id number] 3mg inject 3 mg under the skin in the morning. [facility] febuxostat 40 mg tablet 07-02 00:00: 00 02-01 00:00 :00 No [id number] 40mg Take 1 tablet by mouth in the morning. [facility] cyanocobala min 1,000 mcg/mL injection 06-20 00:00: 00 Yes [id number] 1000ug inject 1 mL under the skin every 14 (fourteen) days. Twice monthly. [facility] Syringe-Nee dle, Safety,Disp Un 3 mL 25 gauge x 5/8" Syrg 06-20 00:00: 00 Yes [id number] Use as directed [facility] cyanocobala min (DODEX) injection 2,000 mcg 06-18 15:30: 00 06-18 14:43 :00 No [id number] 2000ug [facility] triamterene -hydrochlor othiazid 37.5-25 mg tablet 06-18 00:00: 00 Yes [id number] 1{tbl} Take 1 tablet by mouth in the morning. [facility] bisoprolol 5 mg tablet 06-18 00:00: 00 Yes [id number] 5mg Take 1 tablet by mouth in the morning. [facility] liraglutide , weight loss, 3 mg/0.5 mL (18 mg/3 mL) PnIj 06-18 00:00: 00 07-25 00:00 :00 No [id number] 3mg inject 3 mg under the skin in the morning. [facility] febuxostat 40 mg tablet 06-18 00:00: 00 07-02 00:00 :00 No [id number] 40mg Take 1 tablet by mouth in the morning. [facility] bisoprolol 5 mg tablet 06-03 00:00: 00 06-18 00:00 :00 No [id number] 5mg Take 1 tablet by mouth in the morning. [facility] liraglutide , weight loss, (SAXENDA) 3 mg/0.5 mL (18 mg/3 mL) PnIj 8 00:00: 00 07-25 00:00 :00 No [id number] 3mg inject 3 mg under the skin in the morning. Week1: 0.6mg daily, Week2: 1.2mg daily, Week3: 1.8mg daily, Week4: 2.4mg daily, Week5+: 3.0mg daily [facility] bisoprolol 5 mg tablet 04-30 00:00: 00 06-03 00:00 :00 No [id number] 5mg TAKE 1 TABLET BY MOUTH IN THE MORNING [facility] liraglutide , weight loss, (SAXENDA) 3 mg/0.5 mL (18 mg/3 mL) PnIj 03-21 00:00: 05-15 00:00 :00 No [id number] 3mg inject 3 mg under the skin in the morning. Week1: 0.6mg daily, Week2: 1.2mg daily, Week3: 1.8mg daily, Week4: 2.4mg daily, Week5+: 3.0mg daily [facility] ibuprofen 800 mg tablet 03-18 09:16: 06 Yes 800mg Take 1 tablet by mouth every 6 (six) hours as needed. [facility] semaglutide , weight loss, (WEGOVY) 0.25 mg/0.5 mL PnIj SC injection 03-18 00:00: 00 06-18 00:00 :00 No [id number] .25mg inject 0.25 mg under the skin weekly. 1st dose [facility] semaglutide , weight loss, (WEGOVY) 0.5 mg/0.5 mL PnIj SC injection 03-18 00:00: 00 04-18 04:59 :00 No [id number] .5mg inject 0.5 mg under the skin weekly for 30 days. 2nd dose [facility] semaglutide , weight loss, (WEGOVY) 1 mg/0.5 mL PnIj SC injection 03-18 00:00: 00 04-18 04:59 :00 No [id number] 1mg inject 1 mg under the skin weekly for 30 days. 3rd dose [facility] ibuprofen 800 mg tablet 2021-10 12:45: 59 Yes 800mg Take 800 mg by mouth every 6 (six) hours as needed. [facility] triamterene -hydrochlor othiazid 37.5-25 mg tablet 06-20 00:00: 00 06-18 00:00 :00 No [id number] 1{tbl} Take 1 tablet by mouth in the morning. [facility] ibuprofen 800 mg tablet 06-19 08:34: 29 Yes 800mg Take 800 mg by mouth every 6 (six) hours as needed. [facility] naproxen 500 mg tablet 06-19 08:34: 10 06-19 00:00 :00 No 500mg Take 500 mg by mouth 2 (two) times daily with meals. [facility] febuxostat 40 mg tablet 06-19 00:00: 00 06-18 00:00 :00 No [id number] 40mg Take 1 tablet by mouth in the morning. [facility] bisoprolol 5 mg tablet 06-19 00:00: 00 04-30 00:00 :00 No [id number] 5mg Take 1 tablet by mouth in the morning. [facility] triamterene -hydrochlor othiazid 37.5-25 mg tablet 06-19 00:00: 00 06-20 00:00 :00 No [id number] 1{tbl} Take 1 tablet by mouth in the morning. [facility] bisoprolol 5 mg tablet 07-02 00:00: 00 06-19 00:00 :00 No [id number] 5mg Take 1 tablet by mouth daily. [facility] febuxostat 40 mg tablet 07-02 00:00: 00 06-19 00:00 :00 No [id number] 40mg Take 1 tablet by mouth daily. [facility] triamterene -hydrochlor othiazid 37.5-25 mg tablet 07-02 00:00: 00 06-19 00:00 :00 No [id number] 1{tbl} Take 1 tablet by mouth daily. [facility] colchicine 0.6 mg Cap 10-28 00:00: 00 Yes [id number] .6mg Take 0.6 mg by mouth as needed (flare up gout). [facility] Immunizations Ordered Immunization Name Filled Immunization Name Date Status Comments Source SARS-COV-2 COVID-19 MODERNA 12+ YRS VACCINE 2020-12-31 00:00:00 Completed [facility] SARS-COV-2 COVID-19 MODERNA 12+ YRS VACCINE 2020-12-31 00:00:00 Completed [facility] SARS-COV-2 COVID-19 MODERNA 12+ YRS VACCINE 2020-12-31 00:00:00 Completed [facility] SARS-COV-2 COVID-19 MODERNA 12+ YRS VACCINE 2020-12-31 00:00:00 Completed [facility] SARS-COV-2 COVID-19 MODERNA 12+ YRS VACCINE 2020-12-31 00:00:00 Completed [facility] SARS-COV-2 COVID-19 MODERNA 12+ YRS VACCINE 2020-12-31 00:00:00 Completed [facility] SARS-COV-2 COVID-19 MODERNA 12+ YRS VACCINE 2020-12-31 00:00:00 Completed [facility] SARS-COV-2 COVID-19 MODERNA 12+ YRS VACCINE 2020-12-31 00:00:00 Completed [facility] SARS-COV-2 COVID-19 MODERNA 12+ YRS VACCINE 2020-12-31 00:00:00 Completed [facility] SARS-COV-2 COVID-19 MODERNA 12+ YRS VACCINE 2020-12-31 00:00:00 Completed [facility] SARS-COV-2 COVID-19 MODERNA 12+ YRS VACCINE 2020-12-31 00:00:00 Completed [facility] SARS-COV-2 COVID-19 MODERNA 12+ YRS VACCINE 2020-12-31 00:00:00 Completed [facility] SARS-COV-2 COVID-19 MODERNA 12+ YRS VACCINE 2020-12-31 00:00:00 Completed [facility] SARS-COV-2 COVID-19 MODERNA 12+ YRS VACCINE 2020-12-31 00:00:00 Completed [facility] SARS-COV-2 COVID-19 MODERNA 12+ YRS VACCINE 2020-12-31 00:00:00 Completed [facility] SARS-COV-2 COVID-19 MODERNA 12+ YRS VACCINE 2020-12-31 00:00:00 Completed [facility] SARS-COV-2 COVID-19 MODERNA 12+ YRS VACCINE 2020-12-31 00:00:00 Completed [facility] SARS-COV-2 COVID-19 MODERNA 12+ YRS VACCINE 2020-12-31 00:00:00 Completed [facility] SARS-COV-2 COVID-19 MODERNA 12+ YRS VACCINE 2020-12-31 00:00:00 Completed [facility] SARS-COV-2 COVID-19 MODERNA 12+ YRS VACCINE 2020-12-31 00:00:00 Completed [facility] SARS-COV-2 COVID-19 MODERNA 12+ YRS VACCINE 2020-12-31 00:00:00 Completed [facility] SARS-COV-2 COVID-19 MODERNA 12+ YRS VACCINE 2020-12-31 00:00:00 Completed [facility] SARS-COV-2 COVID-19 MODERNA 12+ YRS VACCINE 2020-12-31 00:00:00 Completed [facility] SARS-COV-2 COVID-19 MODERNA 12+ YRS VACCINE 2020-12-03 00:00:00 Completed [facility] SARS-COV-2 COVID-19 MODERNA 12+ YRS VACCINE 2020-12-03 00:00:00 Completed [facility] SARS-COV-2 COVID-19 MODERNA 12+ YRS VACCINE 2020-12-03 00:00:00 Completed [facility] SARS-COV-2 COVID-19 MODERNA 12+ YRS VACCINE 2020-12-03 00:00:00 Completed [facility] SARS-COV-2 COVID-19 MODERNA 12+ YRS VACCINE 2020-12-03 00:00:00 Completed [facility] SARS-COV-2 COVID-19 MODERNA 12+ YRS VACCINE 2020-12-03 00:00:00 Completed [facility] SARS-COV-2 COVID-19 MODERNA 12+ YRS VACCINE 2020-12-03 00:00:00 Completed [facility] SARS-COV-2 COVID-19 MODERNA 12+ YRS VACCINE 2020-12-03 00:00:00 Completed [facility] SARS-COV-2 COVID-19 MODERNA 12+ YRS VACCINE 2020-12-03 00:00:00 Completed [facility] SARS-COV-2 COVID-19 MODERNA 12+ YRS VACCINE 2020-12-03 00:00:00 Completed [facility] SARS-COV-2 COVID-19 MODERNA 12+ YRS VACCINE 2020-12-03 00:00:00 Completed [facility] SARS-COV-2 COVID-19 MODERNA 12+ YRS VACCINE 2020-12-03 00:00:00 Completed [facility] SARS-COV-2 COVID-19 MODERNA 12+ YRS VACCINE 2020-12-03 00:00:00 Completed [facility] SARS-COV-2 COVID-19 MODERNA 12+ YRS VACCINE 2020-12-03 00:00:00 Completed [facility] SARS-COV-2 COVID-19 MODERNA 12+ YRS VACCINE 2020-12-03 00:00:00 Completed [facility] SARS-COV-2 COVID-19 MODERNA 12+ YRS VACCINE 2020-12-03 00:00:00 Completed [facility] SARS-COV-2 COVID-19 MODERNA 12+ YRS VACCINE 2020-12-03 00:00:00 Completed [facility] SARS-COV-2 COVID-19 MODERNA 12+ YRS VACCINE 2020-12-03 00:00:00 Completed [facility] SARS-COV-2 COVID-19 MODERNA 12+ YRS VACCINE 2020-12-03 00:00:00 Completed [facility] SARS-COV-2 COVID-19 MODERNA 12+ YRS VACCINE 2020-12-03 00:00:00 Completed [facility] SARS-COV-2 COVID-19 MODERNA 12+ YRS VACCINE 2020-12-03 00:00:00 Completed [facility] SARS-COV-2 COVID-19 MODERNA 12+ YRS VACCINE 2020-12-03 00:00:00 Completed [facility] SARS-COV-2 COVID-19 MODERNA 12+ YRS VACCINE 2020-12-03 00:00:00 Completed [facility] SARS-COV-2 COVID-19 MODERNA 12+ YRS VACCINE Unknown Completed [facility] SARS-COV-2 COVID-19 MODERNA 12+ YRS VACCINE Unknown Completed [facility] Influenza Virus Vaccine Unknown Completed [facility] SARS-COV-2 COVID-19 MODERNA 12+ YRS VACCINE Unknown Completed [facility] SARS-COV-2 COVID-19 MODERNA 12+ YRS VACCINE Unknown Completed [facility] Influenza Virus Vaccine Unknown Completed [facility] SARS-COV-2 COVID-19 MODERNA 12+ YRS VACCINE Unknown Completed [facility] SARS-COV-2 COVID-19 MODERNA 12+ YRS VACCINE Unknown Completed [facility] Influenza Virus Vaccine Unknown Completed [facility] SARS-COV-2 COVID-19 MODERNA 12+ YRS VACCINE Unknown Completed [facility] SARS-COV-2 COVID-19 MODERNA 12+ YRS VACCINE Unknown Completed [facility] Influenza Virus Vaccine Unknown Completed [facility] SARS-COV-2 COVID-19 MODERNA 12+ YRS VACCINE Unknown Completed [facility] SARS-COV-2 COVID-19 MODERNA 12+ YRS VACCINE Unknown Completed [facility] Influenza Virus Vaccine Unknown Completed [facility] SARS-COV-2 COVID-19 MODERNA 12+ YRS VACCINE Unknown Completed [facility] SARS-COV-2 COVID-19 MODERNA 12+ YRS VACCINE Unknown Completed [facility] Influenza Virus Vaccine Unknown Completed [facility] SARS-COV-2 COVID-19 MODERNA 12+ YRS VACCINE Unknown Completed [facility] SARS-COV-2 COVID-19 MODERNA 12+ YRS VACCINE Unknown Completed [facility] Influenza Virus Vaccine Unknown Completed [facility] SARS-COV-2 COVID-19 MODERNA 12+ YRS VACCINE Unknown Completed [facility] SARS-COV-2 COVID-19 MODERNA 12+ YRS VACCINE Unknown Completed [facility] Influenza Virus Vaccine Unknown Completed [facility] SARS-COV-2 COVID-19 MODERNA 12+ YRS VACCINE Unknown Completed [facility] SARS-COV-2 COVID-19 MODERNA 12+ YRS VACCINE Unknown Completed [facility] Influenza Virus Vaccine Unknown Completed [facility] SARS-COV-2 COVID-19 MODERNA 12+ YRS VACCINE Unknown Completed [facility] SARS-COV-2 COVID-19 MODERNA 12+ YRS VACCINE Unknown Completed [facility] Influenza Virus Vaccine Unknown Completed [facility] SARS-COV-2 COVID-19 MODERNA 12+ YRS VACCINE Unknown Completed [facility] SARS-COV-2 COVID-19 MODERNA 12+ YRS VACCINE Unknown Completed [facility] Influenza Virus Vaccine Unknown Completed [facility] SARS-COV-2 COVID-19 MODERNA 12+ YRS VACCINE Unknown Completed [facility] SARS-COV-2 COVID-19 MODERNA 12+ YRS VACCINE Unknown Completed [facility] Influenza Virus Vaccine Unknown Completed [facility] SARS-COV-2 COVID-19 MODERNA 12+ YRS VACCINE Unknown Completed [facility] SARS-COV-2 COVID-19 MODERNA 12+ YRS VACCINE Unknown Completed [facility] Influenza Virus Vaccine Unknown Completed [facility] SARS-COV-2 COVID-19 MODERNA 12+ YRS VACCINE Unknown Completed [facility] SARS-COV-2 COVID-19 MODERNA 12+ YRS VACCINE Unknown Completed [facility] Influenza Virus Vaccine Unknown Completed [facility] SARS-COV-2 COVID-19 MODERNA 12+ YRS VACCINE Unknown Completed [facility] SARS-COV-2 COVID-19 MODERNA 12+ YRS VACCINE Unknown Completed [facility] Influenza Virus Vaccine Unknown Completed [facility] SARS-COV-2 COVID-19 MODERNA 12+ YRS VACCINE Unknown Completed [facility] SARS-COV-2 COVID-19 MODERNA 12+ YRS VACCINE Unknown Completed [facility] Influenza Virus Vaccine Unknown Completed [facility] SARS-COV-2 COVID-19 MODERNA 12+ YRS VACCINE Unknown Completed [facility] SARS-COV-2 COVID-19 MODERNA 12+ YRS VACCINE Unknown Completed [facility] Influenza Virus Vaccine Unknown Completed [facility] SARS-COV-2 COVID-19 MODERNA 12+ YRS VACCINE Unknown Completed [facility] SARS-COV-2 COVID-19 MODERNA 12+ YRS VACCINE Unknown Completed [facility] Influenza Virus Vaccine Unknown Completed [facility] SARS-COV-2 COVID-19 MODERNA 12+ YRS VACCINE Unknown Completed [facility] SARS-COV-2 COVID-19 MODERNA 12+ YRS VACCINE Unknown Completed [facility] Influenza Virus Vaccine Unknown Completed [facility] SARS-COV-2 COVID-19 MODERNA 12+ YRS VACCINE Unknown Completed [facility] SARS-COV-2 COVID-19 MODERNA 12+ YRS VACCINE Unknown Completed [facility] Influenza Virus Vaccine Unknown Completed [facility] SARS-COV-2 COVID-19 MODERNA 12+ YRS VACCINE Unknown Completed [facility] SARS-COV-2 COVID-19 MODERNA 12+ YRS VACCINE Unknown Completed [facility] Influenza Virus Vaccine Unknown Completed [facility] SARS-COV-2 COVID-19 MODERNA 12+ YRS VACCINE Unknown Completed [facility] SARS-COV-2 COVID-19 MODERNA 12+ YRS VACCINE Unknown Completed [facility] Influenza Virus Vaccine Unknown Completed [facility] SARS-COV-2 COVID-19 MODERNA 12+ YRS VACCINE Unknown Completed [facility] SARS-COV-2 COVID-19 MODERNA 12+ YRS VACCINE Unknown Completed [facility] Influenza Virus Vaccine Unknown Completed [facility] Vital Signs Vital Name Observation Time Observation Value Comments S ource Systolic blood pressure 2023-10-16 15:32:00 114 mm[Hg] [facility] Diastolic blood pressure 2023-10-16 15:32:00 71 mm[Hg] [facility] Heart rate 2023-10-16 15:32:00 59 /min [facility] Body temperature 2023-10-16 15:32:00 36.56 Pauline [facility] Respiratory rate 2023-10-16 15:32:00 18 /min [facility] Body height 2023-10-16 15:32:00 188 cm [facility] Body weight 2023-10-16 15:32:[address] [facility] BMI 2023-10-16 15:32:00 34.64 kg/m2 [facility] Oxygen saturation in Arterial blood by Pulse oximetry 2023-10-16 15:32:00 95 /min [facility] Systolic blood pressure 2023-09-09 14:49:00 136 mm[Hg] [facility] Diastolic blood pressure 2023-09-09 14:49:00 85 mm[Hg] [facility] Heart rate 2023-09-09 14:49:00 73 /min [facility] Body temperature 2023-09-09 14:49:00 36.61 Pauline [facility] Respiratory rate 2023-09-09 14:49:00 18 /min [facility] Body height 2023-09-09 14:49:00 188 cm [facility] Body weight 2023-09-09 14:49:00 121.11 kg [facility] BMI 2023-09-09 14:49:00 34.28 kg/m2 [facility] Oxygen saturation in Arterial blood by Pulse oximetry 2023-09-09 14:49:00 93 /min [facility] Systolic blood pressure 2023-06-18 13:57:00 135 mm[Hg] [facility] Diastolic blood pressure 2023-06-18 13:57:00 80 mm[Hg] [facility] Heart rate 2023-06-18 13:57:00 67 /min [facility] Body temperature 2023-06-18 13:57:00 35.17 Pauline [facility] Respiratory rate 2023-06-18 13:57:00 16 /min [facility] Body height 2023-06-18 13:57:[address] [facility] Body weight 2023-06-18 13:57:[address] [facility] BMI 2023-06-18 13:57:00 34.40 kg/m2 [facility] Oxygen saturation in Arterial blood by Pulse oximetry 2023-06-18 13:57:00 95 /min [facility] Systolic blood pressure 2023-03-18 14:19:00 124 mm[Hg] [facility] Diastolic blood pressure 2023-03-18 14:19:00 77 mm[Hg] [facility] Heart rate 2023-03-18 14:15:00 63 /min [facility] Body temperature 2023-03-18 14:15:00 37.06 Pauline [facility] Respiratory rate 2023-03-18 14:15:00 18 /min [facility] Body height 2023-03-18 14:15:[address] [facility] Body weight 2023-03-18 14:15:00 127.551 kg [facility] [facility] BMI 2023-03-18 14:15:00 36.10 kg/m2 [facility] Oxygen saturation in Arterial blood by Pulse oximetry 2023-03-18 14:15:00 95 /min [facility] Systolic blood pressure 2022-08-15 18:46:00 130 mm[Hg] [facility] Diastolic blood pressure 2022-08-15 18:46:00 87 mm[Hg] [facility] Heart rate 2022-08-15 18:46:00 77 /min [facility] Body temperature 2022-08-15 18:46:00 37.61 Pauline [facility] Respiratory rate 2022-08-15 18:46:00 18 /min [facility] Body height 2022-08-15 18:46:[address] [facility] Body weight 2022-08-15 18:46:[address] [facility] BMI 2022-08-15 18:46:00 36.03 [facility] in Arterial blood by Pulse oximetry 2022-08-15 18:46:00 98 /min [facility] Systolic blood pressure 2022-06-19 13:31:00 151 mm[Hg] [facility] Diastolic blood pressure 2022-06-19 13:31:00 92 mm[Hg] [facility] Heart rate 2022-06-19 13:30:00 63 /min [facility] Body temperature 2022-06-19 13:30:00 36.78 Pauline [facility] Body height 2022-06-19 13:30:00 185.4 cm [facility] Body weight 2022-06-19 13:30:00 127.914 kg [facility] BMI 2022-06-19 13:30:00 37.21 kg/m2 [facility] Procedures Procedure Date / Time Performed Performing Clinician Source POCT URINALYSIS AUTO 2023-09-09 15:07:00 Carol Cook [facility] ASSIGNMENT OF BENEFITS 2023-09-09 14:40:08 Docto r Unassigned, Mcnabb [facility] DIANNE,POST-VOID RES,US,NON-IMAGING 2023-09-09 00:00:00 Paige Cook [facility] CBC WITH DIFF 2023-03-18 15:03:[address] [facility] FREE T4 2023-03-18 15:03:00 Farheen Rosales [facility] THYROID STIMULATING HORMONE 2023-03-18 15:03:00 Farheen Rosales [facility] COMP. METABOLIC PANEL (92215) 2023-03-18 15:03:00 Farheen Rosales [facility] LIPID PANEL (73620)(TOTAL CHOLESTEROL, TRIGLYCERIDES, HDL) 2023-03-18 15:03:00 Farheen Rosales [facility] GLYCOSYLATED HEMOGLOBIN (A1C) 2023-03-18 15:03:00 Farheen Rosales [facility] FREE T3 2023-03-18 15:03:00 Farheen Rosales [facility] PATIENT FINANCIAL POLICY 2023-03-18 14:00:09 Doctor Unassigned, Mcnabb [facility] ASSIGNMENT OF BENEFITS 2022-08-15 18:27:02 Docto r Unassigned, Mcnabb [facility] Encounters Start Date/Time End Date/Time Encounter Type Admission Type Attending [facility] Facility Care Department Encounter ID Source 2022-03-15 17:38:45 Outpatient [facility] [id number] [facility] 2023-10-22 00:00:00 2024-02-23 10:58:58 Refill Farheen Rosales [facility] 1.2.840.114 350.1.13.10 4.2.7.2.686 [id number] [facility] 2024-02-16 08:30:00 2024-02-16 08:30:00 Outpatient R FARHEEN ROSALES [facility] [id number] [facility] 2024-02-02 00:00:00 2024-02-02 00:00:00 [facility] 1.2.840.114 350.1.13.10 4.2.7.2.686 [id number] [facility] 2023-10-21 00:00:00 2023-10-21 00:00:00 [facility] 1.2.840.114 350.1.13.10 4.2.7.2.686 [id number] 044 [id number] [facility] 2023-10-18 00:00:00 2023-10-18 00:00:00 [facility] BU[facility] 1.2.840.114 350.1.13.10 4.2.7.2.686 [id number] [facility] 2023-10-16 10:30:00 2023-10-16 10:45:00 [facility] Tr[facility] Visit 2, Adc Lab Ofelia Gomez [facility] BUILDING 1.2.840.114 350.1.13.10 4.2.7.2.686 [id number] [facility] 2023-10-16 09:00:00 2023-10-16 09:58:35 Outpatient R OFELIA GOMEZ REPLACED BY [facility] [id number] [facility] 2023-10-16 09:00:00 2023-10-16 09:58:35 [facility] 1.2.840.114 350.1.13.10 4.2.7.2.686 [id number] [facility] 2023-10-13 00:00:00 2023-10-13 00:00:00 Telephone Farheen Rosales [facility] 1.2.840.114 350.1.13.10 4.2.7.2.686 [id number] [facility] 2023-09-11 09:00:00 2023-09-11 09:00:00 Outpatient R [facility] [id number] [facility] 2023-09-09 09:00:00 2023-09-09 09:37:08 Outpatient R PHANI COOKTH [facility] [id number] [facility] 2023-09-09 09:00:00 2023-09-09 09:37:08 Office Visit Paige Cook [facility] 1.2.840.114 350.1.13.10 4.2.7.2.686 [id number] [facility] 2023-09-09 00:00:2023-09-09 00:00:00 Orders Only Doctor Unassigned, Mcnabb [facility] 1.2.840.114 350.1.13.10 4.2.7.2.686 [id number] [facility] 2023-08-01 00:00:00 2023-08-01 00:00:00 [facility] 1.2.840.114 350.1.13.10 4.2.7.2.686 [id number] [facility] 2023-07-31 00:00:00 2023-07-31 00:00:00 [facility] 1.2.840.114 350.1.13.10 4.2.7.2.686 [id number] [id number] [facility] 2023-07-25 00:00:00 2023-07-25 00:00:00 Telephone Farheen Rosales [facility] BUILDING 1.2.840.114 350.1.13.10 4.2.7.2.686 [id number] 044 [id number] [facility] 2023-07-02 00:00:00 2023-07-02 00:00:00 [facility] 1.2.840.114 350.1.13.10 4.2.7.2.686 [id number] [facility] 2023-06-30 00:00:00 2023-06-30 00:00:00 Patient Secure Msg Doctor Unassigned, Mcnabb [facility] 1.2.840.114 350.1.13.10 4.2.7.2.686 [id number] [facility] 2023-06-26 00:00:00 2023-06-26 00:00:00 Patient Secure Msg Doctor Unassigned, Mcnabb [facility] BUILDING 1.2.840.114 350.1.13.10 4.2.7.2.686 [id number] [facility] 2023-06-18 09:45:00 2023-06-18 10:00:00 [facility] Tr[facility] Visit 2, Adc Lab Farheen Rosales [facility] BUILDING 1.2.840.114 350.1.13.10 4.2.7.2.686 [id number] [facility] 2023-06-18 09:00:00 2023-06-18 09:45:10 Outpatient [facility] [id number] [facility] 2023-06-18 09:00:00 2023-06-18 09:45:10 Office Visit Surinder Farheen [facility] BUILDING 1.2.840.114 350.1.13.10 4.2.7.2.686 [id number] 044 [id number] [facility] 2023-06-03 00:00:00 2023-06-03 00:00:00 RefCarlos Hay Critical access hospital?[facility] 1.2.840.114 350.1.13.10 4.2.7.2.686 [id number] [facility] 2023-06-03 00:00:00 2023-06-03 00:00:00 Refill Carlos Hall [facility] 1.2.840.114 350.1.13.10 4.2.7.2.686 [id number] [facility] 2023-05-26 00:00:00 2023-05-26 00:00:00 Catherine Hall Carlos [facility] JENS?[facility] 1.2.840.114 350.1.13.10 4.2.7.2.686 [id number] 044 [id number] [facility] 2023-05-14 00:00:00 2023-05-14 00:00:00 Refill Farheen Rosales [facility] BUILDING 1.2.840.114 350.1.13.10 4.2.7.2.686 [id number] 044 [id number] [facility] 2023-04-30 00:00:00 2023-04-30 00:00:00 Refill Carlos Hall [facility] JENS?[facility] 1.2.840.114 350.1.13.10 4.2.7.2.686 [id number] [facility] 2023-04-30 00:00:00 2023-04-30 00:00:00 Refill Jael [facility] JENS?[facility] 1.2.840.114 350.1.13.10 4.2.7.2.686 [id number] 044 [id number] [facility] 2023-03-19 00:00:00 2023-03-19 00:00:00 Telephone Farheen Rosales [facility] BUILDING 1.2.840.114 350.1.13.10 4.2.7.2.686 [id number] [facility] 2023-03-18 10:45:00 2023-03-18 11:00:00 Lambskin Trimmer Visit 2, Adc Lab Farheen Rosales [facility] BUILDING 1.2.840.114 350.1.13.10 4.2.7.2.686 [id number] [facility] 2023-03-18 09:00:00 2023-03-18 09:55:36 Outpatient R FARHEEN ROSALES FARHEEN [facility] [id number] [facility] 2023-03-18 09:00:00 2023-03-18 09:55:36 Office Visit Farheen Rosales [facility] 1..840.114 350.1.13.10 4.2.7.2.686 [id number] [facility] 2023-03-18 00:00:00 2023-03-18 00:00:00 Orders Only Doctor Unassigned, Mcnabb [facility] 1..840.114 350.1.13.10 4.2.7.2.686 [id number] [facility] 2023-03-04 15:45:00 2023-03-04 15:45:00 Outpatient CARLOS ROCHA [facility] [id number] [facility] 2022-10-23 00:00:00 2022-10-23 00:00:00 Carlos Barksdale [facility] 1.2.840.114 350.1.13.10 4.2.7.2.686 [id number] [facility] 2022-08-15 12:40:00 2022-08-15 13:00:00 Urgent Care Laureen Buck Unknown, Attending [facility] BUILDING 1..840.114 350.1.13.10 4.2.7.2.686 [id number] [facility] 2022-08-15 12:40:00 2022-08-15 12:40:00 Outpatient R LAUREEN BUCK [facility] [id number] [facility] 2022-08-15 00:00:00 2022-08-15 00:00:00 Orders Only Doctor Unassigned, Mcnabb [facility] 1.2840.114 350.1.13.10 4.2.7.2.686 [id number] [facility] 2022-07-31 00:00:00 2022-07-31 00:00:00 Telephone Chelydaniela [facility] 1.284.114 350.1.13.10 4.2.7.2.686 [id number] [facility] 2022-06-19 09:00:00 2022-06-19 09:15:00 [facility] Tr[facility] Visit Lab, Demetri Hall [facility] BU[facility] 1.2.840.114 350.1.13.10 4.2.7.2.686 [id number] [facility] 2022-06-19 08:30:00 2022-06-19 09:00:00 Office Visit Shellyfidenciodaniela [facility] 1.2840.114 350.1.13.10 4.2.7.2.686 [id number] [facility] 2022-06-19 08:30:00 2022-06-19 08:52:00 Outpatient CARLOS ROCHA [facility] [id number] [facility] 2022-06-19 08:30:00 2022-06-19 08:30:00 Outpatient R CARLOS HALL [facility] [id number] [facility] 2022-06-19 00:00:00 2022-06-19 00:00:00 Refill Shellyjaden [facility] 1.2.840.114 350.1.13.10 4.2.7.2.686 [id number] [facility] 2022-06-13 10:30:00 2022-06-13 10:30:00 Outpatient Harsha CARLOS HALL [facility] [id number] [facility] 2021-07-11 00:00:00 2021-07-11 00:00:00 [facility] 1.2.840.114 350.1.13.10 4.2.7.2.686 [id number] [facility] 2021-07-02 15:08:19 2021-07-02 15:23:19 Office Visit Carlos Hall [facility] 1.2.840.114 350.1.13.10 4.2.7.2.686 [id number] [facility] 2021-07-02 15:00:00 2021-07-02 15:00:00 Outpatient Harsha HALLCARLOS [facility] [id number] [facility] 2021-07-02 00:00:00 2021-07-02 00:00:00 Orders Only Doctor Unassigned, Mcnabb [facility] 1.2.840.114 350.1.13.10 4.2.7.2.686 [id number] [facility] 2021-06-11 00:00:00 2021-06-11 00:00:00 Catherine Hall [facility] 1.2.840.114 350.1.13.10 4.2.7.2.686 [id number] [facility] 2020-12-31 16:05:00 2020-12-31 16:05:00 Outpatient [facility] [id number] [facility] 2020-12-03 15:05:00 2020-12-03 15:05:00 Outpatient SALAS SINHA [facility] [id number] [facility] 2020-10-16 00:00:00 2020-10-16 00:00:00 Telephone [facility] 1.2.840.114 350.1.13.10 4.2.7.2.686 [id number] 2020-10-16 00:00:00 2020-10-16 00:00:00 Telephone Carlos Hall [facility] 1.2.840.114 350.1.13.10 4.2.7.2.686 [id number] [facility] 2020-05-16 09:33:49 2020-05-16 09:48:49 [facility]skin Trimmer Visit 2, [facility] Building 1.2.840.114 350.1.13.10 4.2.7.2.686 [id number] 2020-05-16 09:33:49 2020-05-16 09:48:49 [facility] Trimmer Visit 2, Adc Lab Carlos Hall eve [facility] Building 1.2.840.114 350.1.13.10 4.2.7.2.686 [id number] [facility] 2020-05-16 09:02:39 2020-05-16 09:17:39 Office Visit Carlos Hall [facility] Building 1.2.840.114 350.1.13.10 4.2.7.2.686 [id number] 044 [id number] 2020-05-16 09:02:39 2020-05-16 09:17:39 Office Visit Carlos Hall eve [facility] Building 1.2.840.114 350.1.13.10 4.2.7.2.686 [id number] [facility] 2020-05-16 09:15:2020-05-16 09:15:00 Outpatient R CARLOS HALL [facility] [id number] [facility] 2019-10-29 00:00:00 2019-10-29 00:00:00 Telephone Carlos Hall [facility] 1.840.114 350.1.13.10 4.2.7.2.686 [id number] [facility] 2019-10-28 08:24:46 2019-10-28 09:08:51 Office Visit Carlos Hall [facility] 1.0.114 350.1.13.10 4.2.7.2.686 [id number] [facility] 2019-10-28 00:00:00 2019-10-28 00:00:00 Orders Only Doctor Unassigned, Mcnabb [facility] 1.840.114 350.1.13.10 4.2.7.2.686 [id number] [facility] 2019-06-10 00:00:00 2019-06-10 00:00:00 Refill Carlos Hall [facility] 1..114 350.1.13.10 4.2.7.2.686 [id number] [facility] 2019-06-02 00:00:00 2019-06-02 00:00:00 Refill Carlos Hall [facility] One 1.0.114 350.1.13.10 4.2.7.2.686 [id number] [facility] 2019-05-17 00:00:00 2019-05-17 00:00:00 Refill Carlos Hall [facility] One 1.0.114 350.1.13.10 4.2.7.2.686 [id number] 044 [id number] [facility] 2019-05-01 00:00:00 2019-05-01 00:00:00 Catherine Carlos Hall [facility] Ty benavidez Office Building One 1.2.840.114 350.1.13.10 4.2.7.2.686 [id number] [facility] Results Test Description Test Time Test Comments Results Result Co mments Source [facility] [id number] 15:08:00 * Test Item Value Reference Range Interpretation Comme nts POCT U SP GRAV (test code = 3255) 1.020 mg/dl 1.005-1.025 POCT PH U (test code = 3254) 6.0 mg/dl 5-8 POCT U LEUK EST (test code = 3263) negative Negative - Negative POCT U NIT (test code = 3262) negative Negative - Negati ve POCT U PROT (test code = 3259) negative Negative - Negative POCT U GLU (test code = 3256) negative Negative - Negati ve POCT U KETONE (test code = 3258) negative Negative - Negative POCT U UROBILI (test code = 3260) 0.2 mg/dl 0.2-1 POCT U BILI (test code = 3261) negative Negative - Negative POCT U BLD (test code = 3257) negative Negative - Negati ve POCT U COLOR (test code = 3266) yellow POCT U APPEAR (test code = 3267) clear [facility], [id number] 15:08:00 * Test Item Value Reference Range Interpretation Comme nts POCT U SP GRAV (test code = 3255) 1.020 mg/dl 1.005-1.025 POCT PH U (test code = 3254) 6.0 mg/dl 5-8 POCT U LEUK EST (test code = 3263) negative Negative - Negative POCT U NIT (test code = 3262) negative Negative - Negati ve POCT U PROT (test code = 3259) negative Negative - Negative POCT U GLU (test code = 3256) negative Negative - Negati ve POCT U KETONE (test code = 3258) negative Negative - Negative POCT U UROBILI (test code = 3260) 0.2 mg/dl 0.2-1 POCT U BILI (test code = 3261) negative Negative - Negative POCT U BLD (test code = 3257) negative Negative - Negati ve POCT U COLOR (test code = 3266) yellow POCT U APPEAR (test code = 3267) clear [facility] RES,US,[id number] 00:00:00* Test Item Value Reference Range Interpretation Comme nts PVR (URINE VOLUME) (test code = 5193) 0 ml 0-100 [facility] RES,US,[id number] 00:00:00* Test Item Value Reference Range Interpretation Comme nts PVR (URINE VOLUME) (test code = 5193) 0 ml 0-100 [facility],POST-VOID RES,US,[id number] 00:00:00* Test Item Value Reference Range Interpretation Comme nts PVR (URINE VOLUME) (test code = 5193) 0 ml 0-100 [facility] Notes Date/Time Note Provider Source 2024-02-23 15:45:49 Addended by: FARHEEN ROSALES NP on: 02/23/2024 03:45 PM Modules accepted: Orders [facility] 2024-02-23 15:42:47 Patient should be on next dose of medication which is 1.8 mg [facility] 2024-02-02 12:33:08 1. Acute idiopathic gout of right foot Will benefit from a f/u visit - febuxostat 40 mg tablet; Take 1 tablet by mouth in the morning. Dispense: 90 tablet; Refill: 0 [facility] 2024-02-02 08:37:13 Routing to provider. Last prescribed: 07-02-2023 MYNOR: 10-16-2023 Carmen Cox MA [facility] 2024-02-02 08:33:51 Images from the original note were not included. Winnie Quiroz [facility] 2023-10-22 23:20:40 Call patient to verify exactly what he is needing or the issues. The re- orders added are exactly what I sent . What amount is he needing 1. Prediabetes - Insulin Newnan, Disposable, (NOVOFINE 32) 32 gauge x 1/4" Ndle; inject 1 Needle under the skin in the morning. Use as directed Dispense: 100 Each; Refill: 1 - liraglutide (VICTOZA 3-FRANKLYN) 0.6 mg/0.1 mL (18 mg/3 mL) injection; inject 0.6 mg under the skin in the morning. 1st dose Dispense: 2 Pen; Refill: 0 2. Class 1 obesity due to excess calories with serious comorbidity and body mass index (BMI) of 34.0 to 34.9 in adult - Insulin Newnan, Disposable, (NOVOFINE 32) 32 gauge x 1/4" Ndle; inject 1 Needle under the skin in the morning. Use as directed Dispense: 100 Each; Refill: 1 - liraglutide (VICTOZA 3-FRANKLYN) 0.6 mg/0.1 mL (18 mg/3 mL) injection; inject 0.6 mg under the skin in the morning. 1st dose Dispense: 2 Pen; Refill: 0 [facility] 2023-10-22 08:15:09 Alejandra Frost is a 52 year old male The patient called in Yesterday and stated that we keep sending in the wrong medications to his pharmacy. The patient listed 4 medications and two of them had the wrong amount. The medications are: Insulin Newnan, Novofine 32 5 mL Insulin Newnan, Novofine 32 ? Liraglutide Victoza 1-Franklyn of 3 pens 5 mL long 1.2 mg Liraglutide Victoza 3- franklyn mL? The patient is running out of his medications. The patient will like for a MA and or a nurse to call him because he is going base off of what the doctor said? Rsp 10/22 [facility] 2023-10-21 15:26:45 Spoke with pharmacist, they need clarification if patient is going to continue same dose. Per Obi note to continue same dose. Had been on 0.6 mg of victoza and reports good weight loss Y Cox MA [facility] 2023-10-21 14:38:17 Alejandra Frost is a 52 year old male is stating that [id number] [place] [address] [address] [facility] is needing a call from the clinic in regards to instructions for the liraglutide (VICTOZA 3-FRANKLYN) 0.6 mg/0.1 mL (18 mg/3 mL) injection 1 Pen Sig: inject 0.6 mg under the skin in the morning for 30 days. 1st dose and liraglutide (VICTOZA 3-FRANKLYN) 0.6 mg/0.1 mL (18 mg/3 mL) injection Sig: inject 1.2 mg under the skin in the morning. 2nd dose. Patient is completely out of medications. Pleased advise.[phone] (home) Y Hagen [facility] 2023-10-18 17:55:45 1. Prediabetes Victoza - okay to dispense 1 box - Insulin Newnan, Disposable, (NOVOFINE 32) 32 gauge x 1/4" Ndle; inject 1 Needle under the skin in the morning. Use as directed Dispense: 100 Each; Refill: 1 2. Class 1 obesity due to excess calories with serious comorbidity and body mass index (BMI) of 34.0 to 34.9 in adult - Insulin Newnan, Disposable, (NOVOFINE 32) 32 gauge x 1/4" Ndle; inject 1 Needle under the skin in the morning. Use as directed Dispense: 100 Each; Refill: 1 [facility] 2023-10-18 14:47:31 Alejandra Frost is a 52 year old male Insulin Newnan, Disposable, (NOVOFINE 32) 32 gauge x 1/4" Ndle (Pharmacy needs frequency) liraglutide (VICTOZA 3-FRANKLYN) 0.6 mg/0.1 mL (18 mg/3 mL) injection (Pharmacy needs quantity; 1 pen (30 day supply or 1 box (90 day supply And directions confirmed) [id number] [place] [address] [address] [facility] [employer] [employer] [address] Y Jain [facility] 2023-10-16 10:30:00 Images from the original note were not included. Venipuncture collection performed by clean technique on the right anticubitus. Total of 1 attempts were made. Slight pressure and a bandage/dressing were applied to the site(s). The patient experienced no complications. The following specimens were processed according to instructions and sent to [facility] laboratories per lab order on 10/16/2023: LT BLUE SST 1 RED LAV 2 PPT DK GREEN (LiHep) DK GREEN (SodH) FREDERICK DK BLUE (K2) DK BLUE (S) ACD Blood Culture NIPT/NTD Patient has been identified by and name and was provided with cup, antiseptic towelette, and clean catch instructions. 1 urine specimen(s) sent. Unpreserved 1 Urine Culture Aptima tube Other urine [facility] 2023-10-14 14:19:40 Spoke with patient. Agreered with patient to schedule an appointment with Dr. Bowling to discuss medication. Patient has been schedule on 06-16-2024 at 8:00. [facility] Carmen Cox MA [facility] 2023-10-14 13:38:01 Unable to send . Used mainly used for hx of DM which chart review does not indicate the diagnosis Recommend visit to discuss weight management with any of the providers in the clinic [facility] 2023-10-14 09:12:12 Medication was Discontinue, please review [facility] Carmen Cox MA [facility] 2023-10-14 09:01:03 I don't see this in his current med list and what dose is he on ? [facility] 2023-10-13 14:13:33 Alejandra Frost is a 52 year old male' Pt called and states that pharmacy is needing a new rx for VICTOZA 3-FRANKLYN 0.6 mg/0.1 mL (18 mg/3 mL) injection. Please advise. [employer] Rachelle Fox [facility] 2023-06-18 09:45:00 Formatting of this n ote is different from the original. Images from the original note were not included. Venipuncture collection performed by clean technique on the right anticubitus. Total of 1 attempts were made. Slight pressure and a bandage/dressing were applied to the site(s). The patient experienced no complications. The following specimens were processed according to instructions and sent to [facility] laboratories per lab order on 06/18/2023 : LT BLUE SST 2 RED LAV PPT DK GREEN (LiHep) DK GREEN (SodH) FREDERICK DK BLUE (K2) DK BLUE (S) ACD Blood Culture NIPT/NTD [facility] 2023-05-15 09:12:44 Formatting of this n ote is different from the original. Requested Prescriptions Pending Prescriptions Disp Refills liraglutide, weight loss, (SAXENDA) 3 mg/0.5 mL (18 mg/3 mL) PnIj 3 mL 3 Sig: inject 3 mg under the skin in the morning. Week1: 0.6mg daily, Week2: 1.2mg daily, Week3: 1.8mg daily, Week4: 2.4mg daily, Week5+: 3.0mg daily Off-Protocol Failed - 05/14/2023 2:07 PM Failed - Medication not assigned to a protocol, forward to provider. Passed - Valid encounter within last 12 months Recent Visits Date Type Provider Dept 03/18/23 Office Visit Farheen Rosales NP [facility] 08/15/22 Urgent Care Laureen Buck, [facility] Showing recent visits within past 365 days and meeting all other requirements Future Appointments Date Type Provider Dept 06/18/23 Appointment Farheen Rosales NP [facility] Showing future appointments within next 365 days and meeting all other requirements Called pharmacy and confirmed with pharmacovigilance specialist Flavia that patient does not have refills remaining. Refill sent to [facility] until Amirah Costa MA [facility] 2023-05-14 14:06:35 Formatting of this n ote might be different from the original. Pt called requesting a refill. Please advise. liraglutide, weight loss, (SAXENDA) 3 mg/0.5 mL (18 mg/3 mL) PnIj [facility]
[2024-06-02 08:05] LABS: Absolute Eosinophils 0.2 K/uL (0-0.5); Absolute Lymphocytes (CBC) 1.7 K/uL (0.7-4.9); Absolute Monocytes 0.7 K/uL (0.1-1.3); Absolute Neutrophil 5.2 K/uL (1.8-8.0); Basophils % 0.6 % (0-1.3); Eosinophils % 2.9 % (0-4.4); Hemoglobin 15.7 g/dL (13.6-17.9); Lymphocytes % 21.3 % (15.3-44.8); MCH 32.2 pg (27.0-35.0); MCHC 34.1 g/dL (32.0-36.0); MCV 94.2 fL (80-100); MPV 8.3 fL (7.6-11.3); Monocytes % 8.9 % (3.3-12.3); Neutrophils % 66.3 % (41.7-73.7); Platelets 228 thou/uL (152-406); RBC Red Blood Cell Count 4.89 M/uL (4.33-5.43); Red Cell Distribution Width 12.5 % (12.1-15.2)
[2024-06-02] MEDS ORDERED: FAMOTIDINE 20 MG/2 ML VIAL IV ONE (08:21)
[2024-06-02 08:35] LABS: Albumin 3.5 g/dL (3.4-5.0); Albumin/Globulin Ratio 0.9 (1.1-1.8); Anion Gap 7.4 mEq/L (5.0-15.0); Bilirubin Total 0.8 mg/dL (0.2-1.0); Globulin 3.7 g/dL (2.3-3.5); Potassium 3.4 mEq/L (3.5-5.1); Protein, Total 7.2 g/dL (6.4-8.2)
[2024-06-02 08:56] LABS: Specific Gravity 1.018 (1.005-1.030); Urine Bilirubin NEGATIVE (Negative); Urine Blood Negative (Negative); Urine Clarity Clear (Clear); Urine Color Light-Yellow (Yellow); Urine Glucose NEGATIVE (Negative); Urine Ketones NEGATIVE (Negative); Urine Microscopic Reflex YN NO UMIC; Urine Nitrite NEGATIVE (Negative); Urine Protein NEGATIVE (Negative); Urine Urobilinogen Normal (Normal)
--- NOTE | 2024-06-02 09:10 | RAD REPORT ---
EXAM DESCRIPTION: CT - Abdomen Pelvis W Contrast - 06/02/2024 8:48 am CLINICAL HISTORY: Abdominal pain COMPARISON: 2016 TECHNIQUE: Computed axial tomography of the abdomen pelvis was obtained. 100 cc Isovue-300 was admin istered intravenously. Oral contrast was not requested which limits evaluation of bowel and appendix All CT scans are performed using dose optimization technique as appropriate and may include automated exposure control or mA/KV adjustment according to patient size. FINDINGS: Fatty liver. Spleen, pancreas, adrenal and kidneys appear unremarkable. Diverticula stem from the colon. Mild to moderate stranding adjacent to distal descending colon diver ticula. No free air. No abscess Normal appendix Small umbilical hernia contains fat. Small inguinal hernias contain fat IMPRESSION: Mild to moderate descending colon diverticulitis
[2024-06-02] MEDS ORDERED: KETOROLAC 30 MG/ML INJ ONE (09:24)
[2024-06-02] MEDS ORDERED: AMOX/K CLAV 875 MG TAB ONE (10:05)
--- NOTE | 2024-06-02 10:07 | EDPHYS ---
Physician Documentation [facility] Name: Nilay Frost Age: 53 yrs Sex: Male : 1970 Arrival Date: 06/02/2024 Time: 07:26 Bed 7 Private MD: ED Physician Vincent Roche HPI: 06/02 11:33 This 53 yrs old Male presents to ER via Ambulatory with complaints of nd3 Abdominal Pain. 11:33 53-year-old male with past medical history of diverticulitis, gout [place] [facility] [place] for left lower quadrant abdominal pain that began yesterday. Patient rates the discomfort a 5/10. He denies any alleviating or inciting factors. Patient denies fevers, chills, nausea, vomiting, diarrhea. Historical: - Allergies: 07:37 dragon fruit; ll1 - Home Meds: 10:28 Gout med [Active]; hydrochlorothiazide 37.5 mg Oral tab 1 tab once daily [Active]; kj2 visoprolol [Active]; - PMHx: 07:37 Diverticulitis; Gout; Hypertension; ll1 - PSHx: 07:37 None; ll1 - Immunization history:: Adult Immunizations up to date. - Infectious Disease History:: Denies. - Social history:: Smoking status: Patient denies any tobacco usage or history of. ROS: 11:33 Constitutional: Negative for fever, and chills. Cardiovascular: Negative for chest ms3 pain, and palpitations. Respiratory: Negative for shortness of breath, cough, wheezing, and pleuritic chest pain, 11:33 MS/Extremity: Negative for injury and deformity, Skin: Negative for injury, rash, and discoloration, 11:33 Abdomen/GI: Positive for abdominal pain, Exam: 11:33 Constitutional: This is a well developed, well nourished patient who is awake, alert, ms3 and in no acute distress. Chest/axilla: Normal chest wall appearance and motion. Nontender with no deformity. Cardiovascular: Regular rate and rhythm with a normal S1 and S2. No gallops, murmurs, or rubs. Normal PMI, no JVD. No pulse deficits. Respiratory: Lungs have equal breath sounds bilaterally, clear to auscultation and percussion. No rales, rhonchi or wheezes noted. No increased work of breathing, no retractions or nasal flaring. 11:33 Abdomen/GI: Inspection: abdomen appears normal, Bowel sounds: normal, Palpation: mild abdominal tenderness, in the left lower quadrant, Vital Signs: 07:37 BP 135 / 86; Pulse 55; Resp 17; Temp 98.2; Weight 120.2 kg; Height 6 ft. 0 in. ; Pain ll1 5/10; 08:26 BP 126 / 72; Pulse 54; Resp 17; Pulse Ox 99% on R/A; ll1 10:37 BP 124 / 76; Pulse 60; Resp 18; Temp 98; Pulse Ox 99% on R/A; kj2 07:37 Body Mass Index 35.94 (120.20 kg, 182.88 cm) ll1 07:37 Pain Scale: Adult ll1 MDM: 07:52 Patient medically screened. ms3 11:33 Differential diagnosis: appendicitis, bowel obstruction, diverticulitis, non-specific ms3 abd pain. Data reviewed: vital signs, nurses notes, lab test result(s), and as a result, I will discharge patient. I considered the following discharge prescriptions or medication management in the emergency department Medications were administered in the Emergency Department. See MAR. Care significantly affected by the following chronic conditions: Hypertension. Counseling: I had a detailed discussion with the patient and/or guardian regarding the historical points, exam findings, and any diagnostic results supporting the discharge/admit diagnosis, lab results, radiology results, the need for outpatient follow up, to return to the emergency department if symptoms worsen or persist or if there are any questions or concerns that arise at home. Special discussion: Based on the patient's Hx, exam, and Dx evaluation, there is no indication for emergent surgery or inpatient Tx. It is understood by the patient/guardian that if the Sx's persist or worsen they need to return immediately for re-evaluation. ED course: Discussed labs and imaging with patient. Patient to follow-up with primary care physician in 2 to 3 days. Patient understands agrees with plan. All questions were answered. Return precautions discussed include worsening symptoms, or any other concerns. On reevaluation patient is alert and oriented x 4, no apparent distress, nontoxic-appearing, ambulatory emerged primary, speaking full sentences. 06/02 07:53 Order name: CBC with Diff; Complete Time: 10:02 ms3 0828 07:53 Order name: CMP; Complete Time: 10:02 ms3 06/02 07:54 Order name: Urinalysis w/ reflexes; Complete Time: 10:02 ms3 06/02 07:53 Order name: CT Abd/Pelvis - IV Contrast Only ms3 06/02 07:53 Order name: IV Saline Lock; Complete Time: 07:58 ms3 06/02 07:53 Order name: Labs collected and sent; Complete Time: 07:58 ms3 Administered Medications: 08:26 Drug: Famotidine IVP 20 mg IVP once; dilute with 10 mL 0.9% NaCl; give over 2 minutes ll1 Route: IVP; Site: right antecubital; 09:32 Follow up: Response: No adverse reaction ll1 09:32 Drug: Ketorolac IVP 15 mg IVP once Route: IVP; Site: right antecubital; ll1 10:07 Follow up: Response: No adverse reaction; Pain is decreased ll1 10:07 Drug: Amoxicillin-Clavulanate PO 875 mg PO once Route: PO; ll1 Disposition Summary: 06/02/24 10:06 Discharge Ordered Notes: Location: Home ms3 Condition: Stable ms3 Diagnosis - Diverticulitis of large intestine without perforation or abscess without bleeding ms3 Followup: ms3 - With: Eddie De Santiago MD - When: 2 - 3 days - Reason: Recheck today's complaints Discharge Instructions: - Discharge Summary Sheet ms3 - Diverticulitis, [id number] ms3 Forms: - Medication Reconciliation Form ms3 - Antibiotic Education ms3 - Prescription Opioid Use ms3 - Patient Portal Instructions ms3 - Leadership Thank You Letter ms3 Prescriptions: - Augmentin 875-125 mg Oral Tablet - take 1 tablet ORAL route every 12 hours for 10 days; 20 tablet; Refills: 0, ms3 Product Selection Permitted - Tramadol 50 mg Oral Tablet - take 1 tablet ORAL route every 8 hours as needed; 12 tablet; Refills: 0, ms3 Product Selection Permitted Signatures: Dispatcher [employer] Bryan Singh RN RN ll1 Vincent Roche DO DO ms3 Gabriela Anand RN RN kj2
--- NOTE | 2024-06-02 10:07 | ER ---
Nurse's Notes [facility] Name: Nilay Frost Age: 53 yrs Sex: Male : 1970 Arrival Date: 06/02/2024 Time: 07:26 Bed 7 Private MD: Diagnosis: Diverticulitis of large intestine without perforation or abscess without bleeding Presentation: 06/02 07:37 Chief complaint: Patient states: L sided abdominal pain started yesterday. No fever or ll1 N/V/D. Coronavirus screen: Client denies travel out of the [place] in the last 14 days. At this time, the client does not indicate any symptoms associated with coronavirus-19. Ebola Screen: Patient denies travel to an Ebola-affected area in the 21 days before illness onset. Initial Sepsis Screen: Does the patient meet any 2 criteria? No. Patient's initial sepsis screen is negative. Does the patient have a suspected source of infection? No. Patient's initial sepsis screen is negative. Risk Assessment: Do you want to hurt yourself or someone else? Patient reports no desire to harm self or others. Onset of symptoms was June 01, 2024. 07:37 Method Of Arrival: Ambulatory ll1 07:37 Acuity: JOEY 3 ll1 Triage Assessment: 07:39 General: Appears in no apparent distress. Behavior is calm, cooperative, appropriate ll1 for age. Pain: Complains of pain in L abdomen Pain currently is 5 out of 10 on a pain scale. Quality of pain is described as aching. GI: Reports lower abdominal pain. Historical: - Allergies: 07:37 dragon fruit; ll1 - Home Meds: 10:28 Gout med [Active]; hydrochlorothiazide 37.5 mg Oral tab 1 tab once daily [Active]; kj2 visoprolol [Active]; - PMHx: 07:37 Diverticulitis; Gout; Hypertension; ll1 - PSHx: 07:37 None; ll1 - Immunization history:: Adult Immunizations up to date. - Infectious Disease History:: Denies. - Social history:: Smoking status: Patient denies any tobacco usage or history of. Screenin:47 [facility] ED Fall Risk Assessment (Adult) History of falling in the last 3 months, ll1 including since admission No falls in past 3 months (0 pts) Confusion or Disorientation No (0 pts) Intoxicated or Sedated No (0 pts) Impaired Gait No (0 pts) Mobility Assist Device Used No (0 pt) Altered Elimination No (0 pt) Score/Fall Risk Level 0 - 2 = Low Risk Maintained a safe environment, Hourly rounding (assess needs \T\ fall precautionary measures) done. Abuse screen: Denies threats or abuse. Nutritional screening: No deficits noted. Tuberculosis screening: No symptoms or risk factors identified. Assessment: 07:47 Reassessment: Dr. Roche at . ll1 08:26 Reassessment: No changes from previously documented assessment. Patient and/or family ll1 updated on plan of care and expected duration. Pain level reassessed. Patient is alert, oriented x 3, equal unlabored respirations, skin warm/dry/pink. 08:50 Reassessment: Back from CT. ll1 09:32 Reassessment: No changes from previously documented assessment. Patient and/or family ll1 updated on plan of care and expected duration. Pain level reassessed. Patient is alert, oriented x 3, equal unlabored respirations, skin warm/dry/pink. 10:15 General: Appears in no apparent distress. Behavior is calm, cooperative. Pain: Denies kj2 pain. Neuro: Level of Consciousness is awake, alert. Cardiovascular: Patient's skin is warm and dry. Respiratory: Airway is patent Respiratory effort is even, unlabored. GI: No deficits noted. 10:29 GI: Bowel sounds Abd is non tender. kj2 Vital Signs: 07:37 BP 135 / 86; Pulse 55; Resp 17; Temp 98.2; Weight 120.2 kg; Height 6 ft. 0 in. ; Pain ll1 5/10; 08:26 BP 126 / 72; Pulse 54; Resp 17; Pulse Ox 99% on R/A; ll1 10:37 BP 124 / 76; Pulse 60; Resp 18; Temp 98; Pulse Ox 99% on R/A; kj2 07:37 Body Mass Index 35.94 (120.20 kg, 182.88 cm) ll1 07:37 Pain Scale: Adult ll1 ED Course: 07:31 Patient arrived in ED. ra3 07:34 Vincent Roche DO is Attending Physician. ms3 07:37 Arm band placed on Patient placed in an exam room, on a stretcher. ll1 07:39 Triage completed. ll1 07:40 Bryan Figueredo, RN is Primary Nurse. ll1 07:47 Patient has correct armband on for positive identification. Bed in low position. Client ll1 placed on continuous cardiac and pulse oximetry monitoring. NIBP monitoring applied. 07:55 No provider procedures requiring assistance completed. Inserted saline lock: 22 gauge ll1 in right antecubital area, using aseptic technique. ,using aseptic technique. site labeled with date, time, initials Blood collected. Flushed with 10 mL NS. 07:55 Initial lab(s) drawn, by me, sent to lab. ll1 08:26 Urinalysis w/ reflexes Sent. ll1 08:50 CT Abd/Pelvis - IV Contrast Only In Process Unspecified. EDMS 10:06 Eddie De Santiago MD is Referral Physician. ms3 10:39 Provided Education on: call light, fall precaution. kj2 10:41 IV discontinued, intact, bleeding controlled, No redness/swelling at site. Pressure kj2 dressing applied. Administered Medications: 08:26 Drug: Famotidine IVP 20 mg IVP once; dilute with 10 mL 0.9% NaCl; give over 2 minutes ll1 Route: IVP; Site: right antecubital; 09:32 Follow up: Response: No adverse reaction ll1 09:32 Drug: Ketorolac IVP 15 mg IVP once Route: IVP; Site: right antecubital; ll1 10:07 Follow up: Response: No adverse reaction; Pain is decreased ll1 10:07 Drug: Amoxicillin-Clavulanate PO 875 mg PO once Route: PO; ll1 Medication: 07:47 VIS not applicable for this client. ll1 Outcome: 10:06 Discharge ordered by . ms3 10:40 Discharged to home ambulatory, kj2 10:40 Condition: stable 10:40 Discharge instructions given to patient, Instructed on discharge instructions, follow up and referral plans. medication usage, Demonstrated understanding of instructions, follow-up care, medications, Prescriptions given X 2, 10:41 Patient left the ED. kj2 Signatures: Dispatcher [employer] EDMS Bryan Figueredo, RN RN ll1 Vincent Roche DO DO ms3 Ciera Ceron ra3 Gabriela Anand, RN RN kj2
[2024-06-02 10:56] VITALS: O2SAT 99
[2024-06-02 11:02] VITALS: BP 124/76; TEMP 98
== END 2024-06-02 10:41 | disposition home or self-care (01) ==
LOC: ER 07:26
DX: K57.32 Diverticulitis of large intestine without perforation or abscess without bleeding (principal)
CPT/HCPCS: 85025; 36415; 81003; 80053; 74177; Q9967